=== PATIENT | male | born 1965 | race Caucasian/White ===

== ENCOUNTER 2017-08-24 04:45 | Outpatient (CLI) | payer BC ==
[~2017-08-24 04:45] MED LIST: ASPI81TA30 PO; ATOR40TA PO; LOSA25TA96 PO; METF500T7 PO; METO25TA6 PO; NITR0.4T SL; PANT40TA4 PO
== END 2017-08-24 23:59 | disposition home or self-care (01) ==
LOC: DIABETIC 04:45
PROVIDERS: ATTEND Family Medicine
DX: E11.65 Type 2 diabetes mellitus with hyperglycemia (principal); Z87.891 Personal history of nicotine dependence
CPT/HCPCS: G0108

== ENCOUNTER 2018-07-29 01:13 | Outpatient (CLI) | payer SELFPAY ==
[2018-07-29 08:03] LABS: CHOL/HDL RATIO 3.61 (0.00-4.99)
[2018-07-29 08:07] LABS: HEMOGLOBIN A1C 7.5 % (4.5-6.2)
== END 2018-07-29 23:59 | disposition home or self-care (01) ==
LOC: HW HEART 01:13
DX: Z13.6 Encounter for screening for cardiovascular disorders (principal); I65.23 Occlusion and stenosis of bilateral carotid arteries; E11.9 Type 2 diabetes mellitus without complications; Z95.1 Presence of aortocoronary bypass graft
CPT/HCPCS: 36415

== ENCOUNTER 2018-12-11 10:21 | Emergency (ER) | payer BC, SELFPAY ==
[~2018-12-11] VITALS: Ht 185.4 cm; Wt 113.6 kg
[~2018-12-11 10:21] MED LIST changes: +METF500T20 PO; -METF500T7 PO
[2018-12-11 11:12] LABS: BASOPHILS % (AUTO) 0.7 % (0-1); EOSINOPHILS # (AUTO) 0.1 X10'3 (0-0.9); EOSINOPHILS % (AUTO) 1.7 % (0-6); HEMATOCRIT 43.3 % (42.0-52.0); HEMOGLOBIN 14.7 g/dl (14.0-17.9); LYMPHOCYTES # (AUTO) 1.4 X10'3 (1.1-4.8); LYMPHOCYTES % (AUTO) 28.5 % (21-51); MEAN CORPUSCULAR HEMOGLOBIN 28.6 PG (27.0-31.0); MEAN CORPUSCULAR HGB CONC 34.1 g/dL (33.0-36.5); MEAN PLATELET VOLUME 7.2 FL (7.4-10.4); MONOCYTES # (AUTO) 0.4 X10'3 (0-0.9); MONOCYTES % (AUTO) 7.1 % (2-12); NEUTROPHILS # (AUTO) 3.1 X10'3 (1.8-7.7); PLATELET COUNT 162 X10'3 (140-440); RED BLOOD COUNT 5.15 X10'6 (4.70-6.10); RED CELL DISTRIBUTION WIDTH 14.4 % (11.5-14.5)
[2018-12-11 11:25] LABS: PARTIAL THROMBOPLASTIN TIME 29 SECONDS (22-32)
[2018-12-11 11:28] LABS: ALANINE AMINOTRANSFERASE 46 U/L (12-78); ALBUMIN 3.9 G/DL (3.4-5.0); ALKALINE PHOSPHATASE 87 IU/L (46-116); ANION GAP 6 (8-16); ASPARTATE AMINO TRANSFERASE 21 U/L (10-37); BILIRUBIN,TOTAL 0.6 MG/DL (0.1-1.0); BLOOD UREA NITROGEN 14 MG/DL (7-18); BUN/CREATININE RATIO 12.7 (5.4-32.0); CALCIUM 8.7 MG/DL (8.5-10.1); CHLORIDE 104 MMOL/L (99-107); GLUCOSE 194 MG/DL (70-104); POTASSIUM 4.4 MMOL/L (3.5-5.1); SODIUM 139 MMOL/L (135-145); TOTAL CARBON DIOXIDE 28.8 MMOL/L (24-32); TOTAL PROTEIN 7.8 G/DL (6.4-8.2); eGFR 70 ML/MIN
[2018-12-11] MEDS ORDERED: LIDOcaine Viscous 15ml cup MM ONE (12:05)
[2018-12-11] MEDS ORDERED: sucralfate 1gm/10ml UD suspension PO ONE (12:05)
[2018-12-11] MEDS ORDERED: mag hydrox/Alum hydrox/simeth 30ml oral suspension PO ONE (12:05)
[2018-12-11 12:23] VITALS: BP 125/85
== END 2018-12-11 12:24 | disposition home or self-care (01) ==
LOC: ER 10:22
DX: R10.13 Epigastric pain (principal); R14.0 Abdominal distension (gaseous); R07.89 Other chest pain; E78.00 Pure hypercholesterolemia, unspecified; E11.9 Type 2 diabetes mellitus without complications; Z95.1 Presence of aortocoronary bypass graft; Z98.890 Other specified postprocedural states; Z88.8 Allergy status to other drugs, medicaments and biological substances; Z79.82 Long term (current) use of aspirin; Z79.84 Long term (current) use of oral hypoglycemic drugs; Z79.899 Other long term (current) drug therapy
CPT/HCPCS: 36415; 71045; 80053; 84484; 85025; 85610; 85730; 93005; 99284

== ENCOUNTER 2019-04-05 07:52 | Emergency (ER) | payer BC, SELFPAY ==
[~2019-04-05] VITALS: Ht 185.4 cm; Wt 112.7 kg
--- NOTE | 2019-04-05 08:26 | NUR ---
PT REPORTS WALKED TO BATHROOM AFTER TRIAGE, REPORTS HAVING NORMAL BM, GAS AND BURPING AND REPORTS FEELS BETTER, PT REPORTS HAVING HEAD COLD X 3, PT HAS BEEN TAKING COLD AND FLU ALKASELTZER WELL MUCINEX X 2 PT REPORTS RIGHT SIDED CP BURNING WITH LIFTING AND PUSHING WITH BM, PT ALS REPORTS LEFT SHOULDER PAIN, PT REPORTS CHRONIC ABD BLOATING AND WORSE TODAY
[2019-04-05] MEDS ORDERED: aspirin 81mg tab.chew PO ONE (08:35)
[2019-04-05 08:47] LABS: BASOPHILS % (AUTO) 0.7 % (0-1); EOSINOPHILS # (AUTO) 0.1 X10'3 (0-0.9); EOSINOPHILS % (AUTO) 1.4 % (0-6); HEMATOCRIT 41.4 % (42.0-52.0); HEMOGLOBIN 14.3 g/dl (14.0-17.9); LYMPHOCYTES # (AUTO) 1.4 X10'3 (1.1-4.8); LYMPHOCYTES % (AUTO) 27.4 % (21-51); MEAN CORPUSCULAR HEMOGLOBIN 28.7 PG (27.0-31.0); MEAN CORPUSCULAR HGB CONC 34.6 g/dL (33.0-36.5); MEAN CORPUSCULAR VOLUME 82.9 FL (78-98); MONOCYTES # (AUTO) 0.4 X10'3 (0-0.9); MONOCYTES % (AUTO) 7.8 % (2-12); NEUTROPHILS # (AUTO) 3.2 X10'3 (1.8-7.7); NEUTROPHILS % (AUTO) 62.7 % (42-75); PLATELET COUNT 245 X10'3 (140-440); RED BLOOD COUNT 4.99 X10'6 (4.70-6.10); RED CELL DISTRIBUTION WIDTH 14.4 % (11.5-14.5); WHITE BLOOD COUNT 5.1 X10'3 (4.5-11.0)
[2019-04-05 09:04] LABS: ALANINE AMINOTRANSFERASE 38 U/L (12-78); ALBUMIN 3.7 G/DL (3.4-5.0); ALBUMIN/GLOBULIN RATIO 0.9 (1.1-1.5); ALKALINE PHOSPHATASE 89 IU/L (46-116); ANION GAP 8 (8-16); ASPARTATE AMINO TRANSFERASE 32 U/L (10-37); BILIRUBIN,TOTAL 0.4 MG/DL (0.1-1.0); BLOOD UREA NITROGEN 11 MG/DL (7-18); BUN/CREATININE RATIO 9.2 (5.4-32.0); CHLORIDE 100 MMOL/L (99-107); GLUCOSE 273 MG/DL (70-104); POTASSIUM 4.2 MMOL/L (3.5-5.1); SODIUM 136 MMOL/L (135-145); TOTAL CARBON DIOXIDE 28.5 MMOL/L (24-32); TOTAL PROTEIN 7.8 G/DL (6.4-8.2); eGFR 63 ML/MIN
[2019-04-05] MEDS ORDERED: FENO145T38 PO (09:13)
[2019-04-05] MEDS ORDERED: SITA25TA3 PO (09:13)
[2019-04-05] MEDS ORDERED: LANS30CA56 PO (09:13)
[2019-04-05] MEDS ORDERED: LOSA50TA3 PO (09:13)
[2019-04-05] MEDS ORDERED: ATOR20TA66 PO (09:13)
[2019-04-05 09:43] LABS: D-DIMER 1.37 MG/L FEU (0-0.50)
[2019-04-05] MEDS ORDERED: normal saline 1000ML IV soln IVB ONE (10:00)
[2019-04-05] MEDS ORDERED: iohexol 350MG/ML 100ml bottle IV ONE ×2 (10:49→12:14)
[2019-04-05] MEDS ORDERED: MESSAGE TO NURSING PO NR (11:00)
--- NOTE | 2019-04-05 11:02 | NUR ---
PT BROUGHT BACK FROM CT VIA W/C BY TECH.
--- NOTE | 2019-04-05 12:40 | NUR ---
PT BACK TO BED FROM CT, PT REPORTS NO PAIN SITTING STILL AND VERY LITTLE PAIN WITH MOVEMENT, PT REPORTS PAIN TO LEFT CHEST AND SHOULDER WITH COUGHING AND MOVEMENT.
[2019-04-05 14:09] VITALS: BP 131/83
== END 2019-04-05 14:31 | disposition home or self-care (01) ==
LOC: ER 07:53
DX: I10 Essential (primary) hypertension (principal); E78.00 Pure hypercholesterolemia, unspecified; E11.9 Type 2 diabetes mellitus without complications; Z98.890 Other specified postprocedural states; Z95.1 Presence of aortocoronary bypass graft; Z88.8 Allergy status to other drugs, medicaments and biological substances; Z79.82 Long term (current) use of aspirin; Z79.84 Long term (current) use of oral hypoglycemic drugs; Z79.899 Other long term (current) drug therapy
CPT/HCPCS: 36415; 71045; 71275; 80053; 83605; 83880; 84484; 85025; 85379; 93005; 99284; J7030; Q9967

== ENCOUNTER 2019-04-29 18:17 | Inpatient (IN) | payer BC ==
[~2019-04-29] VITALS: Ht 185.4 cm; Wt 110.0 kg
[~2019-04-29 18:17] MED LIST changes: +ATOR20TA66 PO; -ATOR40TA PO; +FENO145T38 PO; +LANS30CA56 PO; -LOSA25TA96 PO; +LOSA50TA3 PO; -PANT40TA4 PO; +SITA25TA3 PO
[2019-04-29 19:43] LABS: BASOPHILS % (AUTO) 0.4 % (0-1); EOSINOPHILS # (AUTO) 0.1 X10'3 (0-0.9); EOSINOPHILS % (AUTO) 1.1 % (0-6); HEMATOCRIT 44.1 % (42.0-52.0); HEMOGLOBIN 15.5 g/dl (14.0-17.9); LYMPHOCYTES # (AUTO) 1.2 X10'3 (1.1-4.8); MEAN CORPUSCULAR HGB CONC 35.2 g/dL (33.0-36.5); MEAN CORPUSCULAR VOLUME 82.3 FL (78-98); MEAN PLATELET VOLUME 7.6 FL (7.4-10.4); MONOCYTES # (AUTO) 0.7 X10'3 (0-0.9); MONOCYTES % (AUTO) 11.3 % (2-12); NEUTROPHILS # (AUTO) 4.5 X10'3 (1.8-7.7); NEUTROPHILS % (AUTO) 69.2 % (42-75); PLATELET COUNT 165 X10'3 (140-440); RED BLOOD COUNT 5.36 X10'6 (4.70-6.10); RED CELL DISTRIBUTION WIDTH 14.4 % (11.5-14.5); WHITE BLOOD COUNT 6.6 X10'3 (4.5-11.0)
[2019-04-29 19:57] LABS: ALANINE AMINOTRANSFERASE 155 U/L (12-78); ALBUMIN 4.1 G/DL (3.4-5.0); ALKALINE PHOSPHATASE 121 IU/L (46-116); ANION GAP 8 (8-16); ASPARTATE AMINO TRANSFERASE 87 U/L (10-37); BLOOD UREA NITROGEN 11 MG/DL (7-18); BUN/CREATININE RATIO 8.9 (5.4-32.0); CALCIUM 9.4 MG/DL (8.5-10.1); CHLORIDE 96 MMOL/L (99-107); CREATININE 1.23 MG/DL (0.60-1.10); GLUCOSE 216 MG/DL (70-104); LIPASE 308 U/L (73-393); POTASSIUM 3.4 MMOL/L (3.5-5.1); SODIUM 136 MMOL/L (135-145); TOTAL CARBON DIOXIDE 32.2 MMOL/L (24-32); TOTAL PROTEIN 8.3 G/DL (6.4-8.2); eGFR 61 ML/MIN
[2019-04-29] MEDS ORDERED: morphine 4 MG/ML inj SYRINge IV ONE (20:25)
[2019-04-29] MEDS ORDERED: normal saline 1000ML IV soln IVB ONE (20:25)
[2019-04-29] MEDS ORDERED: metoclopramide 5 mg/ml inj IV ONE (20:25)
[2019-04-29 20:39] LABS: MAGNESIUM 1.8 MG/DL (1.5-2.4)
[2019-04-29 20:43] LABS: CLARITY,URINE CLEAR (Clear); COLOR,URINE YELLOW (Yellow); GLUCOSE, URINE 250 mg/dl (Neg); KETONES,URINE NEGATIVE (Neg); LEUKOCYTE ESTERASE ,URINE NEGATIVE (Neg); NITRITES, URINE NEGATIVE (Neg); OCCULT BLOOD,URINE TRACE-INTACT (Neg); PROTEIN,URINE NEGATIVE (Neg)
[2019-04-29 20:47] LABS: UA COLLECTION TYPE CLN CATCH MIDSTREAM
[2019-04-29 20:49] LABS: BACTERIA,URINE FEW /HPF (Neg); RBC,URINE 0-2 /HPF (0-2); SQUAMOUS EPITHELIAL CELL,UR FEW /LPF (FEW); WBC,URINE NONE SEEN /HPF (0-4)
[2019-04-29] MEDS: diatr meglu/diatrizoate 30ml oral sol.-(3 dose) bottle PO SCH ×3 (21:12→22:43)
[2019-04-29] MEDS ORDERED: iohexol 300mg/ml 100ml inj. ONE (21:23)
[2019-04-29] MEDS ORDERED: LORazepam 2 mg/ml vial IV ONE (22:50)
[2019-04-29] MEDS ORDERED: ondansetron/PF 4mg/2ml inj IV ONE (22:50)
[2019-04-30] MEDS ORDERED: magnesium 4gm in 100ml NS 100 ML IV PRN (00:10)
[2019-04-30] MEDS ORDERED: magnesium Cl slow-release 64mg tablet PO PRN (00:10)
[2019-04-30] MEDS ORDERED: acetaminophen 325mg tablet PO PRN ×2 (00:10)
[2019-04-30] MEDS ORDERED: HYDROcodone/acetaminophen 5mg/325mg tablet PO PRN (00:10)
[2019-04-30] MEDS ORDERED: potassium Cl 20 mEq SR tablet PO PRN (00:10)
[2019-04-30] MEDS ORDERED: magnesium hydroxide 30ml (MOM) UD suspension PO PRN (00:10)
[2019-04-30] MEDS ORDERED: magnesium 2GM in 50ml NS 50 ML IV PRN (00:10)
[2019-04-30] MEDS ORDERED: potassium CL 10mEq/100ml bag 100 ML IV PRN (00:10)
[2019-04-30] MEDS ORDERED: morphine 2 MG/ML inj. syringe IV PRN (00:10)
--- NOTE | 2019-04-30 00:50 | NUR ---
ATTEMPTED TO INSERT NG TUBE. UNABLE TO ADVANCE PAST SEPTUM. MD NUR MADE AWARE AND ORDERS RECEIVED TO ORDER XYLOCAINE 1:2 AND PREPARE FOR MD ATTEMPT.
[2019-04-30] MEDS ORDERED: LIDOcaine 1% w/epiNEPHrine 1:200,000 30ml vial SQ ONE (01:00)
[2019-04-30] MEDS: normal saline 1000ml 1,000 ML IV SCH ×4 (01:29→21:27)
[2019-04-30] MEDS: morphine 2 MG/ML inj. syringe IV PRN ×2 (01:54→06:00)
[2019-04-30] MEDS ORDERED: LORazepam 2 mg/ml vial IV ONE ×2 (02:10)
[2019-04-30] MEDS: potassium CL 10mEq/100ml bag 100 ML IV PRN ×4 (03:15→08:23)
--- NOTE | 2019-04-30 04:40 | NUR ---
Patient in room ED 6. I have received report from Kati ED RN and had the opportunity to ask questions and assume patient care.
[2019-04-30 05:00] VITALS: BP 158/99
[2019-04-30 06:30] VITALS: BP 178/113
--- NOTE | 2019-04-30 06:40 | NUR ---
Patient in room [facility]. I have received report from TRINITY Fong and had the opportunity to ask questions and assume patient care.
--- NOTE | 2019-04-30 06:45 | NUR ---
Problems reprioritized. Patient report given, questions answered & plan of care reviewed with TRINITY Wilkins.
[2019-04-30] MEDS: K and/or MAG REPLACEMENT MC SCH ×2 (07:10→20:00)
[2019-04-30] MEDS ORDERED: MESSAGE TO PHARMACY PO ONE (07:15)
[2019-04-30] MEDS ORDERED: dextrose ORAL solution 15 GM/59 ML bottle PO PRN ×2 (07:15)
[2019-04-30] MEDS ORDERED: glucagon, human recombinant 1mg kit SUBCUT PRN (07:15)
[2019-04-30] MEDS ORDERED: dextrose 50%-water 50ml dispensing syringe IV PRN ×2 (07:15)
[2019-04-30] MEDS ORDERED: nitroGLYCERIN 0.4mg SUBLingual tab SL PRN (08:00)
[2019-04-30] MEDS: atorvastatin 20mg tablet PO SCH (08:23)
[2019-04-30] MEDS: enoxaparin 40mg/0.4ml syringe SQ SCH (08:24)
[2019-04-30] MEDS: metoprolol tartrate 25mg tablet PO SCH ×2 (08:24→19:56)
[2019-04-30] MEDS: insulin Lispro (HumaLOG) vial - multi-dose SQ SCH ×3 (08:30→20:06)
[2019-04-30 11:00] VITALS: BP 142/92
--- NOTE | 2019-04-30 18:30 | NUR ---
Problems reprioritized. Patient report given, questions answered & plan of care reviewed with TRINITY Velez.
--- NOTE | 2019-04-30 18:40 | NUR ---
Received report from TRINITY Wilkins. Patient is awake and alert on room air, in no apparent distress. Call light and items of frequent use within reach. Will continue to monitor.
[2019-04-30 19:00] VITALS: BP 164/93
[2019-04-30] MEDS: insulin glargine (Lantus) pen - multi-dose SQ SCH (20:08)
[2019-05-01] VITALS: BP 139/90
[2019-05-01 05:31] LABS: BASOPHILS % (AUTO) 0.3 % (0-1); EOSINOPHILS # (AUTO) 0.1 X10'3 (0-0.9); EOSINOPHILS % (AUTO) 0.9 % (0-6); HEMATOCRIT 38.4 % (42.0-52.0); HEMOGLOBIN 13.4 g/dl (14.0-17.9); LYMPHOCYTES # (AUTO) 1.2 X10'3 (1.1-4.8); LYMPHOCYTES % (AUTO) 16.6 % (21-51); MEAN CORPUSCULAR HEMOGLOBIN 29.3 PG (27.0-31.0); MEAN CORPUSCULAR HGB CONC 34.8 g/dL (33.0-36.5); MEAN CORPUSCULAR VOLUME 84.1 FL (78-98); MEAN PLATELET VOLUME 7.5 FL (7.4-10.4); MONOCYTES # (AUTO) 0.8 X10'3 (0-0.9); MONOCYTES % (AUTO) 11.7 % (2-12); NEUTROPHILS # (AUTO) 4.9 X10'3 (1.8-7.7); NEUTROPHILS % (AUTO) 70.5 % (42-75); PLATELET COUNT 153 X10'3 (140-440); RED BLOOD COUNT 4.56 X10'6 (4.70-6.10); RED CELL DISTRIBUTION WIDTH 14.4 % (11.5-14.5)
[2019-05-01 05:52] LABS: ALBUMIN 3.3 G/DL (3.4-5.0); ANION GAP 7 (8-16); BLOOD UREA NITROGEN 16 MG/DL (7-18); BUN/CREATININE RATIO 14.8 (5.4-32.0); CALCIUM 8.9 MG/DL (8.5-10.1); CHLORIDE 102 MMOL/L (99-107); CREATININE 1.08 MG/DL (0.60-1.10); GLUCOSE 186 MG/DL (70-104); MAGNESIUM 1.8 MG/DL (1.5-2.4); POTASSIUM 3.4 MMOL/L (3.5-5.1); SODIUM 138 MMOL/L (135-145); TOTAL CARBON DIOXIDE 29.1 MMOL/L (24-32); eGFR 71 ML/MIN
--- NOTE | 2019-05-01 06:31 | NUR ---
Problems reprioritized. Patient report given, questions answered & plan of care reviewed with TRINITY Gipson.
[2019-05-01 07:35] VITALS: BP 144/91
[2019-05-01] MEDS: atorvastatin 20mg tablet PO SCH (07:57)
[2019-05-01] MEDS: potassium Cl 20 mEq SR tablet PO PRN ×2 (07:57→17:37)
[2019-05-01] MEDS: metoprolol tartrate 25mg tablet PO SCH (07:58)
[2019-05-01] MEDS: enoxaparin 40mg/0.4ml syringe SQ SCH (07:59)
[2019-05-01] MEDS: K and/or MAG REPLACEMENT MC SCH ×2 (08:00→20:00)
[2019-05-01] MEDS: insulin Lispro (HumaLOG) vial - multi-dose SQ SCH ×3 (08:16→19:28)
[2019-05-01] MEDS: metoprolol succinate 25mg (24-HOUR) SR. Tablet PO SCH (11:00)
--- NOTE | 2019-05-01 11:58 | NUR ---
NG tube dc'd per md orders. patient tolerated well. will start on clear liquid diet and continue to monitor.
[2019-05-01 12:08] VITALS: BP 118/76
--- NOTE | 2019-05-01 15:25 | NUR ---
Pt with A1c 8.4 seen at bedside with SO and mother present. Pt reports he often attends outpatient DM classes and is hoping to attend more following discharge. Pt provided with written DM education with referral to outpatient DM class and RD contact information. Pt admit with SBO, previously NPO with an NG tube however diet has been advanced to clear liquid and NGT removed. Pt endorses a good appetite and denies food allergies, difficulty chewing/swallowing, or constipation/diarrhea. [facility] 05/01. Will continue to follow. Addendum: 05/01/19 at [address] Amended: Links added.
--- NOTE | 2019-05-01 18:30 | NUR ---
Pt moved to room 360B for longer bed. amb in [place] ad boo Addendum: 05/01/19 at 1854 by Jean Carlos Sims RN Amended: Links added.
--- NOTE | 2019-05-01 18:45 | NUR ---
Patient in room [facility]. I have received report from TRINITY Melendez and had the opportunity to ask questions and assume patient care. Addendum: 05/01/19 at 1854 by Jean Carlos Sims RN Amended: Links added.
--- NOTE | 2019-05-01 19:10 | NUR ---
states feeling bloated after dinner, amb in [place] and to bathroom. Addendum: 05/01/19 at 1 by Jean Cralos Sims RN Amended: Links added.
[2019-05-01] MEDS: mag hydrox/Alum hydrox/simeth 30ml oral suspension PO PRN (19:36)
[2019-05-01 20:00] VITALS: BP 154/96
--- NOTE | 2019-05-01 20:00 | NUR ---
Nehemiah zeng in [facility] and to bathroom, unable to restart iv at this time. Addendum: 05/02/19 at 0426 by Jean Carlos Sims RN Amended: Links added.
[2019-05-01] MEDS: normal saline 1000ml 1,000 ML IV SCH (21:19)
--- NOTE | 2019-05-01 22:40 | NUR ---
Pt has been amb shivanijose jassopaula, up to bathroom, passing flatus, lose stools. pt states had mod emesis in bathroom, states feeling better now. pt needs iv, wants to amb a few more labs before bg check and iv restart. Addendum: 05/01/19 at 2304 by Jean Carlos Sims RN Amended: Links added.
[2019-05-01 23:30] VITALS: BP 150/90
[2019-05-01] MEDS: insulin glargine (Lantus) pen - multi-dose SQ SCH (23:32)
--- NOTE | 2019-05-02 | NUR ---
attempted iv start x1 unable to start right f/a, orquidea mtz attempted iv x3, all three blew after insertion. Terrance Degroot to attempt iv. Addendum: 05/02/19 at 0059 by Jean Carlos Sims RN Amended: Links added.
[2019-05-02] MEDS: morphine 2 MG/ML inj. syringe IV PRN (01:22)
[2019-05-02] MEDS: ondansetron/PF 4mg/2ml inj IV PRN ×2 (01:22→22:40)
--- NOTE | 2019-05-02 01:33 | NUR ---
pt received x2 po replacement today for k+ 3.4, pt n/v major, unable to take po, Iv infiltrated most of night. will check labs. Addendum: 05/02/19 at 0134 by Jean Carlos Sims RN Amended: Links added.
--- NOTE | 2019-05-02 05:06 | NUR ---
pt amb in [place], states feeling better, passing large amt flatus. Addendum: 05/02/19 at 0507 by Jean Carlos Sims RN Amended: Links added.
[2019-05-02] MEDS: mag hydrox/Alum hydrox/simeth 30ml oral suspension PO PRN ×3 (05:11→19:12)
--- NOTE | 2019-05-02 05:27 | NUR ---
bs active, abd less distended, pt feels less pressure, passing large amt flatus, occ liq stool. Addendum: 05/02/19 at 0528 by Jean Carlos Sims RN Amended: Links added.
[2019-05-02 05:50] LABS: BASOPHILS % (AUTO) 0.4 % (0-1); EOSINOPHILS # (AUTO) 0.1 X10'3 (0-0.9); EOSINOPHILS % (AUTO) 1.3 % (0-6); HEMATOCRIT 42.3 % (42.0-52.0); HEMOGLOBIN 14.7 g/dl (14.0-17.9); LYMPHOCYTES # (AUTO) 1.7 X10'3 (1.1-4.8); LYMPHOCYTES % (AUTO) 23.7 % (21-51); MEAN CORPUSCULAR HGB CONC 34.8 g/dL (33.0-36.5); MEAN CORPUSCULAR VOLUME 83.2 FL (78-98); MEAN PLATELET VOLUME 7.6 FL (7.4-10.4); MONOCYTES # (AUTO) 0.8 X10'3 (0-0.9); MONOCYTES % (AUTO) 11.3 % (2-12); NEUTROPHILS # (AUTO) 4.4 X10'3 (1.8-7.7); NEUTROPHILS % (AUTO) 63.3 % (42-75); PLATELET COUNT 198 X10'3 (140-440); RED BLOOD COUNT 5.09 X10'6 (4.70-6.10); RED CELL DISTRIBUTION WIDTH 14.2 % (11.5-14.5)
[2019-05-02 06:14] LABS: ALBUMIN 3.7 G/DL (3.4-5.0); ANION GAP 9 (8-16); BLOOD UREA NITROGEN 16 MG/DL (7-18); BUN/CREATININE RATIO 12.9 (5.4-32.0); CALCIUM 9.3 MG/DL (8.5-10.1); CHLORIDE 101 MMOL/L (99-107); CREATININE 1.24 MG/DL (0.60-1.10); GLUCOSE 141 MG/DL (70-104); MAGNESIUM 1.8 MG/DL (1.5-2.4); POTASSIUM 3.4 MMOL/L (3.5-5.1); SODIUM 142 MMOL/L (135-145); TOTAL CARBON DIOXIDE 31.8 MMOL/L (24-32); eGFR 61 ML/MIN
--- NOTE | 2019-05-02 06:49 | NUR ---
Patient in room [facility]. I have received report from TRINITY Perez and had the opportunity to ask questions and assume patient care.
--- NOTE | 2019-05-02 06:56 | NUR ---
Problems reprioritized. Patient report given, questions answered & plan of care reviewed with TRINITY Cai. pt states had some solid stool large amt flatus, states had some shakes, but otheriwse feeling better. Addendum: 05/02/19 at 0658 by Jean Carlos Sims RN Amended: Links added.
[2019-05-02 07:00] VITALS: BP 155/87
[2019-05-02] MEDS: K and/or MAG REPLACEMENT MC SCH ×2 (08:00→20:00)
[2019-05-02] MEDS: atorvastatin 20mg tablet PO SCH (09:18)
[2019-05-02] MEDS: metoprolol succinate 25mg (24-HOUR) SR. Tablet PO SCH (09:20)
[2019-05-02] MEDS: enoxaparin 40mg/0.4ml syringe SQ SCH (09:21)
[2019-05-02] MEDS: insulin Lispro (HumaLOG) vial - multi-dose SQ SCH ×3 (09:30→19:24)
[2019-05-02] MEDS: potassium Cl 20 mEq SR tablet PO PRN ×2 (09:32→14:25)
[2019-05-02 11:00] VITALS: BP 136/82
[2019-05-02] MEDS: normal saline 1000ml 1,000 ML IV SCH (17:19)
--- NOTE | 2019-05-02 19:02 | NUR ---
Problems reprioritized. Patient report given, questions answered & plan of care reviewed with TRINITY BROWER.
[2019-05-02] MEDS: insulin glargine (Lantus) pen - multi-dose SQ SCH (20:46)
--- NOTE | 2019-05-02 23:52 | NUR ---
Patient in room [facility]. I have received report from TRINITY Cai and had the opportunity to ask questions and assume patient care. Addendum: 05/02/19 at 2353 by Radha Guzmán RN Amended: Links added.
[2019-05-03 00:51] VITALS: BP 121/87
[2019-05-03 05:29] LABS: BASOPHILS % (AUTO) 0.4 % (0-1); EOSINOPHILS % (AUTO) 0.7 % (0-6); HEMATOCRIT 39.9 % (42.0-52.0); HEMOGLOBIN 14.1 g/dl (14.0-17.9); LYMPHOCYTES % (AUTO) 14.5 % (21-51); MEAN CORPUSCULAR HEMOGLOBIN 29.1 PG (27.0-31.0); MEAN CORPUSCULAR HGB CONC 35.3 g/dL (33.0-36.5); MEAN CORPUSCULAR VOLUME 82.3 FL (78-98); MEAN PLATELET VOLUME 7.5 FL (7.4-10.4); MONOCYTES # (AUTO) 0.5 X10'3 (0-0.9); MONOCYTES % (AUTO) 7.1 % (2-12); NEUTROPHILS # (AUTO) 5.2 X10'3 (1.8-7.7); NEUTROPHILS % (AUTO) 77.3 % (42-75); PLATELET COUNT 184 X10'3 (140-440); RED BLOOD COUNT 4.85 X10'6 (4.70-6.10); RED CELL DISTRIBUTION WIDTH 14.5 % (11.5-14.5); WHITE BLOOD COUNT 6.7 X10'3 (4.5-11.0)
[2019-05-03 05:35] LABS: ALBUMIN 3.4 G/DL (3.4-5.0); ANION GAP 8 (8-16); BLOOD UREA NITROGEN 17 MG/DL (7-18); BUN/CREATININE RATIO 12.3 (5.4-32.0); CALCIUM 9.3 MG/DL (8.5-10.1); CHLORIDE 97 MMOL/L (99-107); CREATININE 1.38 MG/DL (0.60-1.10); GLUCOSE 154 MG/DL (70-104); MAGNESIUM 2.1 MG/DL (1.5-2.4); POTASSIUM 3.5 MMOL/L (3.5-5.1); SODIUM 139 MMOL/L (135-145); TOTAL CARBON DIOXIDE 34.1 MMOL/L (24-32); eGFR 54 ML/MIN
--- NOTE | 2019-05-03 06:26 | NUR ---
Problems reprioritized. Patient report given, questions answered & plan of care reviewed with TRINITY Cai. Addendum: 05/03/19 at 0627 by Radha Guzmán RN Amended: Links added.
--- NOTE | 2019-05-03 06:41 | NUR ---
Patient in room [facility]. I have received report from TRINITY Garcia and had the opportunity to ask questions and assume patient care.
[2019-05-03 07:00] VITALS: BP 131/77
[2019-05-03] MEDS: atorvastatin 20mg tablet PO SCH (09:31)
[2019-05-03] MEDS: enoxaparin 40mg/0.4ml syringe SQ SCH (09:32)
[2019-05-03] MEDS: metoprolol succinate 25mg (24-HOUR) SR. Tablet PO SCH (09:32)
[2019-05-03] MEDS: insulin Lispro (HumaLOG) vial - multi-dose SQ SCH (09:40)
[2019-05-03 11:00] VITALS: BP 122/80
--- NOTE | 2019-05-03 19:19 | NUR ---
Patient in room [facility]. I have received report from Ayala PETERSEN and had the opportunity to ask questions and assume patient care. Pt sitting up in the chair at bedside eating his FL tray. IV is SL. No signs of distress, will continue to monitor.
--- NOTE | 2019-05-03 19:37 | NUR ---
Problems reprioritized. Patient report given, questions answered & plan of care reviewed with TRINITY AQUINO.
[2019-05-03 20:00] VITALS: BP 101/70
[2019-05-03] MEDS: K and/or MAG REPLACEMENT MC SCH (20:00)
[2019-05-03] MEDS: insulin glargine (Lantus) pen - multi-dose SQ SCH (20:53)
[2019-05-04 00:29] VITALS: BP 126/82
[2019-05-04 05:08] LABS: BASOPHILS % (AUTO) 0.4 % (0-1); EOSINOPHILS # (AUTO) 0.1 X10'3 (0-0.9); EOSINOPHILS % (AUTO) 1.3 % (0-6); HEMATOCRIT 38.2 % (42.0-52.0); HEMOGLOBIN 13.5 g/dl (14.0-17.9); LYMPHOCYTES # (AUTO) 1.5 X10'3 (1.1-4.8); LYMPHOCYTES % (AUTO) 20.6 % (21-51); MEAN CORPUSCULAR HEMOGLOBIN 28.8 PG (27.0-31.0); MEAN CORPUSCULAR HGB CONC 35.3 g/dL (33.0-36.5); MEAN CORPUSCULAR VOLUME 81.7 FL (78-98); MEAN PLATELET VOLUME 7.8 FL (7.4-10.4); MONOCYTES # (AUTO) 0.9 X10'3 (0-0.9); MONOCYTES % (AUTO) 12.8 % (2-12); NEUTROPHILS # (AUTO) 4.7 X10'3 (1.8-7.7); NEUTROPHILS % (AUTO) 64.9 % (42-75); PLATELET COUNT 205 X10'3 (140-440); RED BLOOD COUNT 4.67 X10'6 (4.70-6.10); RED CELL DISTRIBUTION WIDTH 14.3 % (11.5-14.5); WHITE BLOOD COUNT 7.3 X10'3 (4.5-11.0)
[2019-05-04 05:28] LABS: ALBUMIN 3.3 G/DL (3.4-5.0); ANION GAP 10 (8-16); BLOOD UREA NITROGEN 18 MG/DL (7-18); BUN/CREATININE RATIO 14.4 (5.4-32.0); CALCIUM 9.1 MG/DL (8.5-10.1); CHLORIDE 96 MMOL/L (99-107); CREATININE 1.25 MG/DL (0.60-1.10); GLUCOSE 146 MG/DL (70-104); MAGNESIUM 2.1 MG/DL (1.5-2.4); POTASSIUM 3.1 MMOL/L (3.5-5.1); SODIUM 137 MMOL/L (135-145); TOTAL CARBON DIOXIDE 31.1 MMOL/L (24-32); eGFR 60 ML/MIN
--- NOTE | 2019-05-04 06:21 | NUR ---
Problems reprioritized. Patient report given, questions answered & plan of care reviewed with Ayala PETERSEN.
--- NOTE | 2019-05-04 06:23 | NUR ---
Patient in room [facility]. I have received report from TRINITY AQUINO and had the opportunity to ask questions and assume patient care.
[2019-05-04 07:00] VITALS: BP 130/82
[2019-05-04] MEDS: metoprolol succinate 25mg (24-HOUR) SR. Tablet PO SCH (07:42)
[2019-05-04] MEDS: atorvastatin 20mg tablet PO SCH (07:42)
[2019-05-04] MEDS: enoxaparin 40mg/0.4ml syringe SQ SCH (07:42)
[2019-05-04] MEDS: insulin Lispro (HumaLOG) vial - multi-dose SQ SCH ×2 (09:44→18:59)
[2019-05-04 11:00] VITALS: BP 118/79
[2019-05-04] MEDS ORDERED: potassium CL 10mEq/100ml bag 100 ML IV PRN (12:55)
[2019-05-04] MEDS ORDERED: potassium Cl 20 mEq SR tablet PO PRN ×2 (12:55)
[2019-05-04] MEDS ORDERED: potassium Cl 20 mEq SR tablet PO STA (15:38)
[2019-05-04] MEDS ORDERED: POTA20TA10 PO (17:45)
[2019-05-04] MEDS ORDERED: ONDA4TAB6 PO (17:46)
--- NOTE | 2019-05-04 18:25 | NUR ---
Patient in room [facility]. I have received report from Ayala Duncan RN and had the opportunity to ask questions and assume patient care.
--- NOTE | 2019-05-04 19:31 | NUR ---
Pt stable and alert for discharge. IV taken out. Educations given. All belongings sent with pt. Pt taken to lobby in wheelchair to awaiting car where would take home. Medications called in to preferred pharmacy.
== END 2019-05-04 19:27 | disposition home or self-care (01) | DRG 389 ==
LOC: ER 18:18 → ED HOLD 04-30 00:09 → SUR 3N 04-30 05:00
PROVIDERS: ADMIT Hospitalist; ATTEND Internal Medicine
PROC: BW211ZZ Computerized Tomography (CT Scan) of Abdomen and Pelvis using Low Osmolar Contrast (ICD-10-PCS; 2019-04-29)
PROC: 0D9670Z Drainage of Stomach with Drainage Device, Via Natural or Artificial Opening (ICD-10-PCS; principal; 2019-04-30)
DX: K56.600 Partial intestinal obstruction, unspecified as to cause (principal); N17.9 Acute kidney failure, unspecified; E11.9 Type 2 diabetes mellitus without complications; E78.00 Pure hypercholesterolemia, unspecified; E78.5 Hyperlipidemia, unspecified; E86.0 Dehydration; E87.6 Hypokalemia; I10 Essential (primary) hypertension; I25.10 Atherosclerotic heart disease of native coronary artery without angina pectoris; Z95.1 Presence of aortocoronary bypass graft; Z88.8 Allergy status to other drugs, medicaments and biological substances; Z90.49 Acquired absence of other specified parts of digestive tract; Z79.899 Other long term (current) drug therapy; Z79.82 Long term (current) use of aspirin
CPT/HCPCS: 36415; 71045; 74177; 80048; 80053; 81001; 82948; 83036; 83690; 83735; 84132; 85025; 87081; 96374; 96375; 96376; 99291; G0378; J1650; J1815; J2060; J2270; J2405; J2765; J3480; J7030; Q9963; Q9967

== ENCOUNTER 2019-05-31 02:08 | Outpatient (CLI) | payer BC ==
[~2019-05-31 02:08] MED LIST changes: -FENO145T38 PO; +ONDA4TAB6 PO; +POTA20TA10 PO
== END 2019-05-31 23:59 | disposition home or self-care (01) ==
LOC: DIABETIC 02:08
PROVIDERS: ATTEND Family Medicine
DX: E11.9 Type 2 diabetes mellitus without complications (principal)
CPT/HCPCS: G0108

== ENCOUNTER 2019-06-30 04:14 | Outpatient (CLI) | payer BC | END 2019-06-30 23:59 | disposition home or self-care (01) | LOC: DIABETIC 04:14 | PROVIDERS: ATTEND Family Medicine | DX: E11.9 Type 2 diabetes mellitus without complications (principal) | CPT/HCPCS: G0108 ==